=== PATIENT | male | born 1985 | race Caucasian/White ===

== ENCOUNTER 2016-11-14 00:01 | Emergency (ER) | payer SELFPAY ==
[~2016-11-14] VITALS: Ht 177.8 cm; Wt 62.0 kg
[2016-11-14] MEDS ORDERED: SODIUM CHLORIDE 0.9% 1,000 ML IV ONE (00:41)
[2016-11-14] MEDS ORDERED: ONDANSETRON HCL 4MG/2ML VIAL IV STA (00:41)
[2016-11-14 01:41] LABS: BASOPHILS % 0.8 % (0.0-2.0); EOSINOPHILS % 1.5 % (0.0-5.0); HEMATOCRIT. 43.9 % (42.0-52.0); LYMPHOCYTES % 40.1 % (20.0-50.0); MEAN CORPUSCULAR HEMOGLOBIN 30.9 pg (28.0-32.0); MEAN CORPUSCULAR VOLUME 90.7 fL (80.0-94.0); MEAN PLATELET VOLUME 7.3 fl (7.4-10.4); MONOCYTES % 8.2 % (2.0-8.0); NEUTROPHILS % 49.4 % (40.0-76.0); PLATELET 261 x1000/uL (130-400); RED BLOOD CELL COUNT 4.84 mill/uL (4.7-6.1); RED CELL DISTRIBUTION WIDTH 13.6 % (11.6-14.6)
[2016-11-14 01:51] LABS: CHLORIDE 106 mEq/L (98-107)
[2016-11-14 01:59] LABS: CARBON DIOXIDE 26 mEq/L (21-32); ETHANOL BLOOD < 10 mg/dL
[2016-11-14 02:35] LABS: CLARITY URINE CLEAR (CLEAR); COLOR URINE YELLOW (YELLOW); GLUCOSE URINE NEGATIVE (NEGATIVE); KETONES URINE 1+ (NEGATIVE); LEUKOCYTE ESTERASE URINE NEGATIVE (NEGATIVE); NITRITE URINE NEGATIVE (NEGATIVE); OCCULT BLOOD URINE NEGATIVE (NEGATIVE); PROTEIN URINE TRACE (NEGATIVE); SPECIFIC GRAVITY URINE 1.035 (1.005-1.030)
[2016-11-14 03:37] LABS: *AMPHETAMINES SCREEN URINE PRESUMTIVE POSITIVE (NEGATIVE); *BARBITURATES SCREEN URINE NEGATIVE (NEGATIVE); *BENZODIAZEPINES SCREEN URINE PRESUMTIVE POSITIVE (NEGATIVE); *COCAINE SCREEN URINE NEGATIVE (NEGATIVE); CANNABINOID URINE SCREEN PRESUMTIVE POSITIVE (NEGATIVE); METHADONE URINE SCREEN NEGATIVE (NEGATIVE); OPIATES URINE SCREEN PRESUMTIVE POSITIVE (NEGATIVE); PHENCYCLIDINE URINE SCREEN NEGATIVE (NEGATIVE)
[2016-11-14 07:20] VITALS: BP 103/60
== END 2016-11-14 09:04 | disposition home or self-care (01) ==
LOC: ER 00:12
DX: R41.82 Altered mental status, unspecified (principal)
CPT/HCPCS: 36415; 70450; 71010; 80053; 80305; 80307; 80329; 81001; 85025; 93005; 96361; 96374; 99291; G0482; J2405; J7030; Z7610